=== PATIENT | female | born 1930 | race Caucasian/White ===

== ENCOUNTER → 2020-04-15 | Outpatient (CLI) | payer MEDICARE, BC ==
--- NOTE | 2020-04-15 20:27 | BD ---
EXAMINATION TYPE: Axial Bone Density DATE OF EXAM: 04/15/2020 COMPARISON: NONE CLINICAL HISTORY: 89 YR OLD FEMALE....ICD-10 CODE: M85.9 DISORDER OF BONE Height: 61.8 Weight: 160 FRAX RISK QUESTIONS: History of Fracture in Adulthood: YES RISK FACTORS HISTORY OF: History of Wrist Fracture: LT WRIST, MAR 19, 2020 Postmenopausal woman: YES, AT 53 Lost more than 2 inches in height since high school: YES Hyperparathyroidism: NO Adrenal Insufficiency: NO MEDICATIONS: Additional Medications: VIT D Additional History: NOTHING ADDITIONAL TO ADD EXAM MEASUREMENTS: Bone mineral densitometry was performed using the [employer]. Bone mineral density as measured about the Lumbar spine is: ----- L1-L4(G/cm2): 1.161 T Score Values are as follows: ----- L1: -0.8 ----- L2: -0.9 ----- L3: 0.3 ----- L4: 0.3 ----- L1-L4: -0.2 Bone mineral density THIS IS HER FIRST BONE DENSITY .......BASELINE STUDY Bone mineral density about the R hip (g/cm2): 0.902 Bone mineral density about the L hip (g/cm2): 0.962 T Score values are as follows: -----R Neck: -1.5 -----L Neck: -0.3 -----R Total: -0.8 -----L Total: -0.4 Bone mineral density BASELINE STUDY FRAX%S: THERE IS A 16.0% CHANCE FOR A MAJOR OSTEOPOROTIC FX AND A 4.2% FOR HIP.....PROBABILITY FOR FX IN 10 YRS TIME IMPRESSION: Osteopenia (T Score between -2.5 and -1). There is slightly increased risk of fracture and the patient may be considered for treatment. Re-Screen 2-5 years. NOTE: T-SCORE=SD OF THE YOUNG ADULT MEAN.
== END | disposition home or self-care (01) ==
LOC: RADBDWWP 08:35
PROVIDERS: ATTEND Internal Medicine
DX: M85.80 Other specified disorders of bone density and structure, unspecified site (principal)
CPT/HCPCS: 77080